=== PATIENT | male | born 1955 | race Caucasian/White ===

== ENCOUNTER → 2017-09-22 | Outpatient (CLI) | payer OTHER, BC ==
--- NOTE | 2017-09-23 13:16 | PULMONARY FUNCTION TEST ---
Spirometry shows a mild decrease in forced vital capacity and FEV1, with a borderline normal FEV1/FVC ratio of 74%. Flow volume loops were consistent with spirometric findings. The mid flow rates were reduced to 58% of predicted. Cannot exclude small airways disease. If clinically indicated, consideration could be given to doing spirometry pre and post bronchodilators with lung volumes and diffusion.
== END | disposition home or self-care (01) ==
LOC: C.RC 09:42
PROVIDERS: ATTEND Nurse Practitioner Family
DX: R00.2 Palpitations (principal); R06.02 Shortness of breath; I10 Essential (primary) hypertension; E78.5 Hyperlipidemia, unspecified

== ENCOUNTER → 2017-10-10 | Outpatient (CLI) | payer OTHER, BC ==
--- NOTE | 2017-10-10 12:05 | DIAGNOSTIC IMAGING REPORT ---
TWO VIEW CHEST CLINICAL HISTORY: Dyspnea. FINDINGS: PA and lateral chest radiographs are compared to study dated 10/14/2012. The heart is mildly enlarged and there is atherosclerotic calcification of the thoracic aorta. There is prominence of the pulmonary vasculature. Bibasilar airspace opacities are noted. No pleural effusion is identified. There is no pneumothorax. The skeletal structures are osteopenic. The bony thorax appears intact. Degenerative change is seen in the spine. Cholecystectomy clips are noted in the right upper quadrant. IMPRESSION: 1. Cardiomegaly with prominence of the pulmonary vasculature. Correlate clinically for evidence of mild congestive failure. 2. Dependent airspace opacities likely represent atelectasis. Clinical correlation will again be required. Electronically signed by: Ponce Collins M.D. 10/10/2017 12:04 PM Dictated Date/Time: 10/10/2017 12:02 PM
== END | disposition home or self-care (01) ==
LOC: C.RAD1850 11:23
PROVIDERS: ATTEND Physician Assistant
DX: R06.02 Shortness of breath (principal); I42.9 Cardiomyopathy, unspecified

== ENCOUNTER → 2017-10-13 | Outpatient (CLI) | payer OTHER, BC ==
--- NOTE | 2017-10-13 08:47 | DIAGNOSTIC IMAGING REPORT ---
LUNG SCREENING CHEST, LOW DOSE CLINICAL HISTORY: 61 years-old Male presenting with AGGRESSIVE FORMER SMOKER, discontinued for 12 to 13 years, shortness of breath, low dose lung screening. TECHNIQUE: Multidetector CT imaging of the chest was performed without the use of intravenous contrast. IV contrast: None. A dose lowering technique was used consistent with the principles of ALARA (as low as reasonably achievable). Additional postprocessing was performed on a separate Ep[employer] workstation by the radiologist for computer-aided detection and 3-D volumetric segmentation of pulmonary nodules. COMPARISON: None. CT DOSE (mGy.cm): The estimated cumulative dose is 87.31 mGy.cm. FINDINGS: Drapery Counselor topogram: Unremarkable. On soft tissue windows, normal thyroid and thoracic inlet. Bilateral gynecomastia. No axillary, supraclavicular, or mediastinal lymphadenopathy. Evaluation of the hernesto limited without intravenous contrast. Limited atherosclerosis of aortic arch. Normal heart size. No pericardial or pleural effusion. Gallbladder surgically absent. On lung windows, solid 5 mm peripheral right upper lobe nodule (series 4 image 61). Polygonal solid fissural 8 mm right middle lobe nodule (series 4 image 133). Minimal linear opacities in the left lung likely scarring or atelectasis. No evidence of advanced emphysema. No bronchial wall thickening. Airways patent. On bone windows, degenerative changes of the spine. CAD FINDINGS: Nodule 1 Category: 2 Nodule 1 Status: Baseline Nodule 1 Description: Solid Nodule 1 Lesion ID: 1 Nodule 1 Slice Number: 31 Nodule 1 Volume (mm3): 73.5 Nodule 1 Major [place] mm: 5.0 Nodule 1 Minor [place] mm: 4.1 Nodule 2 Category: 2 Nodule 2 Status: Baseline Nodule 2 Description: Solid Nodule 2 Lesion ID: 2 Nodule 2 Slice Number: 67 Nodule 2 Volume (mm3): 106.5 Nodule 2 Major [place] mm: 9.8 Nodule 2 Minor [place] mm: 6.9 Overall Lung RADS Category: 2 Lung RADS Management Recommendation: Continue annual lung cancer screening. Lung RADS Follow Up Date: 10/13/2018 Lung RADS Nodule ID: IMPRESSION: 1. Two solid pulmonary nodules in the right lung with calculated equivalent diameters based on volume measuring less than 6 mm. Recommend continue annual follow-up lung cancer screening. Electronically signed by: Sami Mathews M.D. 10/13/2017 8:46 AM Dictated Date/Time: 10/13/2017 6:59 AM
== END | disposition home or self-care (01) ==
LOC: C.CTS 05:58
PROVIDERS: ATTEND Physician Assistant
DX: Z87.891 Personal history of nicotine dependence (principal); Z12.2 Encounter for screening for malignant neoplasm of respiratory organs; R91.8 Other nonspecific abnormal finding of lung field

== ENCOUNTER → 2017-10-31 | Outpatient (CLI) | payer OTHER, BC ==
--- NOTE | 2017-11-01 05:57 | PAP/PSG TECHNICIAN REPORT ---
[facility] Handkerchief Maker Polysomnogram Report Study name: None Report date: 11/01/2017 Study date: 10/31/2017 Referring Physician: Ayaka Jose PA-C Name: ARMINDA ALEMAN Interpreting Physician: Nicolás Messina D.O. Date of : 1955 Handkerchief Maker: Tanya Robles RPS. Sex: Male Age: 62 StudyType: PSG Weight: 345 lbs Height: 62 years, Height 6' 6" BMI: 39.86 Medications: Amlodipine/Benazepril 10-40 mg, HCTZ 25 mg, Klor-Con 10-10 MEQ, Ibuprofen 600 mg, Fluoxetine 20 mg, Pravastatin 40 mg, Omeprazole 40 mg, Pro Air, Complete Multi Vitamin, Magnesium, Aspirin 81 mg Patient History 62 yr. old male here for a diagnostic sleep study. Patient complains of SOB, snoring, and restlessness. Patient had a test om 2006 that was "borderline" for CHANNING. ESS 07/28. Parameters Monitored NPSG: E1-M2, E2-M1, Fp1-M2, Fp2-M1, F3-M2, F4-M2, F4-M1, C3-M2, C4-M2, C4-M1, O1-M2, O2-M2, O2-M1, T3-M2, T4-M1, P3-M2, P4-M1, CHIN1, CHIN2, HR, EKG, Legs, PFLOW, SNOR, FLOW, CFLOW, Tidal Volume, THOR, ABDO, SpO2, PLTH, CPRESS, ETCO2 Wave, ETCO2, pH Sleep Architecture Sleep Stages Time at Lights Off 8:23:14 PM STAGES Time (min.) TST (%) Time at Lights On 5:42:44 AM Wake 152.0 -- Total Recording Time (TRT) 544.00 min. N1 53.5 14 Total Sleep Period (TSP) 525.0 min. N2 222.0 57 Total Sleep Time (TST) 392.0min. N3 43.5 11 Awake Time 152.0 min. REM 73.0 19 Wake after Sleep Onset 148.5 min. Sleep Efficiency (SE) 72 % Sleep Onset Latency (LORAINE) 19.0 min. Number of Stage 1 Shifts None Awakenings 37 Stage Changes 119 Number of REM periods 2 REM 73.0 19 REM Latency 262.5 min. NREM 319.0 81 Body Position Analysis Supine Right Left Side Prone Vertical Total Sleep Time (min.) 296.0 160.0 0.0 160.02 0.0 75.6 Total Sleep Time (%) 46% 41% 0% 41 0% 100% Total Sleep Time REM (min.) 6.0 67.0 0.0 None 0.0 0.0 Total Sleep Time NREM (min.) 176.0 93.0 0.0 None 0.0 50.0 Intermittent Wake (min.) 114.0 12.4 0.0 None 0.0 25.6 Total Sleep Period (%) 56% None None None None None Arousals Myoclonus (PLM) * Events Count Index Events Count Index Spontaneous 15 2 Events Awake (PLMW) 122 48.2 Respiratory 22 4.1 Events Asleep w/ Arousal (PLMA) 13 2.0 PLM 12 2 Events Asleep w/o Arousal (PLMS) 13 2.0 Snoring 14 2 Total Asleep 26 4.0 Total 62 9 Total 148 16 Respiratory Analysis * CA OA MA CH H RERA Total Count 40 9 2 0 97 4 148 Index 6.1 1.4 0.3 0 14.8 1 23.3 Mean Duration 16.7 15.9 14.3 0.00 25.4 20.7 22.3 Longest Duration 24.1 25.9 18.4 0.00 18.4 22.1 125.9 Respiratory Event Summary Total Supine ~Supine Right Left Prone REM NREM Apneas Count 51 46 5 5 N/A N/A 3 48 Index 7.8 15 1 1.9 N/A N/A 2 9 Hypopneas (4% Desat) Count 97 51 46 42 N/A N/A 38 59 Index 14.8 16.8 13 15.7 N/A N/A 31.2 11.1 Apneas & All Hypopneas Count 148 97 51 47 N/A N/A 41 107 Index 22.7 32 15 18 N/A N/A 33.7 20.1 Respiratory Events (Studio Model+All Hyp+RERA) Count 148 99 53 49 N/A N/A 41 107 Index 23.3 33 15 18.4 N/A N/A 33.7 20.9 Respiratory Related Arousal Count 22 99 11 8 N/A N/A 3 24 Index 4.1 5 3 3 N/A N/A 2 5 Snoring Analysis Supine Right Left Prone REM NREM Total Snore duration 40.7 min Snores count 1,036 1,159 N/A N/A 720 1,528 2,248 Snore mean duration 1.1 Sec Snores index 342 435 N/A N/A 591.8 287.4 344.1 TST with snoring (%) 10.4% SpO2 Analysis Total REM NREM Awake <50% 0.0 min. 0.0 min. 0.0 min. 0.0 min. 51 - 60% 0.0 min. 0.0 min. 0.0 min. 0.0 min. 61 - 70% 0.0 min. 0.0 min. 0.0 min. 0.0 min. 71 - 80% 0.0 min. 0.0 min. 0.0 min. 0.0 min. 81 - 90% 14.9 min. 11.9 min. 1.9 min. 1.1 min. 91 - 100% 523.1 min. 61.1 min. 317.1 min. 144.9 min. Average 94 93 94 95 Minimum SpO2 87 87 88 88 Desaturation Event Index 16.3 23.8 18.6 7.9 # Desat. Events below 89% 8 5 2 1 Time(%) with Saturation below 89% 0.5 0.4 0.1 0.0 Time(min.) with Saturation below 89% 2.5 2.0 0.3 0.2 Heart Rate Analysis End Tidal CO2 Analysis Min (bpm) Max (bpm) Average (bpm) TSP (mins) % of TSP Awake 47 85 60 Above 55 mmHg 0.0 0.0 NREM 45 81 57 50-55 mmHg 0.0 0.0 REM 49 73 57 45-50 mmHg 0.0 0.0 Overall 45 81 57 40-45 mmHg 5.9 1.5 35-40 mmHg 252.2 64.3 30-35 mmHg 110.6 28.2 Average ETCO2 0.2 Supplemental O2 Values Minimum O2 level: None Value Start Time End Time Handkerchief Maker Comments Mr. Aleman slept in the right, left, and supine positions. No cardiac arrhythmia or PLMs noted. No bruxism noted. Snoring was noted and scored as a 3 on a scale of 0 through 5. (0=no snoring, 5=snoring loud enough to be heard through a closed door or down the lamar way) Mr. Aleman awoke to use the restroom once during the night. Mr. Aleman stated, that was a normal night. The final report will be interpreted and signed by a sleep physician. The completed physician report will then be placed in the patient medical record. Therapy (cm H2O) 0 TIB (min.) 544.0 TST (min.) 392.0 Sleep Onset (min.) 19.0 REM Onset From Sleep (min.) 262.5 Sleep Efficiency % 72 Wakefulness (%) 27 Wakefulness (min.) 152.0 NREM 1 (%) 14 NREM 1 (min.) 53.5 NREM 2 (%) 57 NREM 2 (min.) 222.0 NREM 3 (%) 11 NREM 3 (min.) 43.5 REM (%) 19 REM (min.) 73.0 # Arousals 62 Arousal Index 9 # Snore 2,248 Snore Index 344.1 AHI 22.7 AHI Supine 32 AHI Non-Supine 15 NREM AHI 20.1 REM AHI 33.7 RDI 23.3 # Obstructive Apnea 9 # Central Apnea 40 # Mixed Apnea 2 # Hypopneas 97 RERAs 4 Total Respiratory Events 162 Time Below SpO2 89% (min.) 2.3 Mean NREM SpO2 (%) 94 Mean REM SpO2 (%) 93 Mean Sleep SpO2 (%) 94 Min NREM SpO2 (%) 88 Min REM SpO2 (%) 87 Position Supine (min.) 296.0 Position Non-supine (min.) 210.0 LM Index Sleep 4.0 LM Index NREM 3.9 LM Index REM 4.1 Mean Heart Rate (bpm) 57 Min Heart Rate (bpm) 45
--- NOTE | 2017-11-02 20:42 | POLYSOMNOGRAPH REPORT ---
CLINICAL DATA: The patient is a 62-year-old male with a history of snoring, restless sleep, and shortness of breath. He previously had a sleep study done in 2006 and was told that his sleep apnea was borderline. He has gained between 60 and 70 pounds since then. His Doran sleepiness scale score is 5. This was an in-lab overnight polysomnography. SLEEP ARCHITECTURE: The total sleep period was 525 minutes. The total sleep time was 392 minutes. The sleep efficiency was moderately reduced to 72%. The sleep latency was top normal at 19 minutes. Wake after sleep onset was increased to 148.5 minutes. REM latency was prolonged to 262.5 minutes. There were 2 REM periods during the night. Sleep consisted of stage N1 of 14%, stage N2 of 57%, stage N3 of 11%, stage REM 19%. AROUSAL DATA: The patient had 15 spontaneous arousals, 22 respiratory arousals, 12 PLM arousals, and 14 snoring arousals for a total of 62 arousals. The arousal index was 9. PLM DATA: The patient had a total of 26 periodic limb movements of sleep for a PLM index of 4.0. There were 13 PLMs associated with arousals for a PLM arousal index of 2.0. EKG: The underlying cardiac rhythm was normal sinus. The cardiac rates ranged from 45-81 beats per minute with an average of 57 beats per minute. No arrhythmias were noted. END-TIDAL CO2 ANALYSIS: Most of the night the end-tidal CO2 was between 35 and 40. The highest was between 40 and 45 for a total of only 5.9 minutes. OXIMETRY DATA: The average saturation for the night was 94%. The minimum saturation was 87%. There was 2.5 minutes with saturations less than 89%. RESPIRATORY DATA: The patient had a total of 148 respiratory events including 40 central apneas, 9 obstructive apneas, 2 mixed apneas, and 97 hypopneas. Hypopneas were scored according to the 4% desaturation rule. The longest apnea was 25.9 seconds. The mean duration of the hypopneas was 25.4 seconds. There were also 4 RERAs. The apnea-hypopnea index was moderately elevated at 22.7 events per hour. This reflects moderate sleep apnea. HRIS SPECIALIST COMMENTS: Mr. Aleman slept in the right, left, and supine positions. No cardiac arrhythmia noted. No bruxism noted. Snoring was noted and scored as a 3 on a scale of 0 through 5. He awakened to use the restroom once during the night. IMPRESSION: Moderate obstructive sleep apnea. COMMENTS: The patient had disturbed sleep. He had decrease sleepy efficiency. He did have moderate sleep apnea. For the most part, oxygenation was preserved. The apnea-hypopnea index in the supine position was 32. The REM apnea-hypopnea index was 33.7. The patient is symptomatic. He has hypertension and anxiety as comorbidities. RECOMMENDATIONS: 1. It is advised that the patient be treated with nasal CPAP. This could be accomplished either by an in-lab titration study versus treatment with auto-CPAP. 2. Weight loss is advised in light of the elevation of body mass index of 39.86. 3. The patient should avoid sleeping in the supine position as there were increased respiratory events while supine. 4. Following treatment with nasal CPAP, he should be seen between day 31 and day 90.
== END | disposition home or self-care (01) ==
LOC: C.NEUR 20:00
PROVIDERS: ATTEND Physician Assistant
DX: G47.33 Obstructive sleep apnea (adult) (pediatric) (principal); R06.83 Snoring